=== PATIENT | female | born 1950 | race Caucasian/White ===

== ENCOUNTER 2018-05-06 16:15 | Emergency (ER) | payer OTHER ==
[2018-05-06] MEDS: ONDANSETRON (ODT) 4 MG TAB ODT (17:43)
[2018-05-06] MEDS: HYDROCODONE/APAP (5/325) TAB PO (17:44)
[2018-05-06] MEDS: IBUPROFEN 800 MG TAB PO (17:45)
[2018-05-06] MEDS ORDERED: MECLIZINE 12.5 MG TAB (17:50)
[2018-05-06] MEDS: MECLIZINE 12.5 MG TAB PO (17:51)
== END 2018-05-06 18:11 | disposition home or self-care (01) ==
LOC: E/R 16:15
DX: S06.0X0A Concussion without loss of consciousness, initial encounter (principal); R40.2252 Coma scale, best verbal response, oriented, at arrival to emergency department; R40.2362 Coma scale, best motor response, obeys commands, at arrival to emergency department; R40.2142 Coma scale, eyes open, spontaneous, at arrival to emergency department; S40.012A Contusion of left shoulder, initial encounter; V00.211A Fall from ice-skates, initial encounter
CPT/HCPCS: 70450; 73020-50; 99284-25